=== PATIENT | male | born 1935 | race Caucasian/White ===

== ENCOUNTER 2017-12-04 09:01 | Inpatient (IN) | payer MEDICARE ==
[~2017-12-04] VITALS: Ht 182.9 cm; Wt 86.0 kg
[2017-12-04] MEDS ORDERED: ondansetron/PF 4mg/2ml inj IV ONE (09:20)
[2017-12-04] MEDS ORDERED: normal saline 1000ML IV soln IVB ONE (09:20)
[2017-12-04 09:35] LABS: BASOPHILS % (AUTO) 0.3 % (0-1); EOSINOPHILS % (AUTO) 0 % (0-6); HEMATOCRIT 41.2 % (42.0-52.0); HEMOGLOBIN 14.2 g/dl (14.0-17.9); LYMPHOCYTES # (AUTO) 1.6 X10'3 (1.1-4.8); LYMPHOCYTES % (AUTO) 10.9 % (21-51); MEAN CORPUSCULAR HEMOGLOBIN 29.6 PG (27.0-31.0); MEAN CORPUSCULAR HGB CONC 34.5 % (33.0-36.5); MEAN CORPUSCULAR VOLUME 85.6 FL (78-98); MEAN PLATELET VOLUME 7.4 FL (7.4-10.4); MONOCYTES # (AUTO) 0.7 X10'3 (0-0.9); NEUTROPHILS % (AUTO) 83.8 % (42-75); PLATELET COUNT 281 X10'3 (140-440); RED BLOOD COUNT 4.82 X10'6 (4.70-6.10); RED CELL DISTRIBUTION WIDTH 13.5 % (11.5-14.5); WHITE BLOOD COUNT 14.3 X10'3 (4.5-11.0)
[2017-12-04 09:44] LABS: PARTIAL THROMBOPLASTIN TIME 43 SECONDS (22-32)
[2017-12-04 09:56] LABS: ALANINE AMINOTRANSFERASE 24 U/L (12-78); ALBUMIN 3.7 G/DL (3.4-5.0); ALKALINE PHOSPHATASE 59 IU/L (46-116); ANION GAP 10 (8-16); ASPARTATE AMINO TRANSFERASE 22 U/L (10-37); BILIRUBIN,TOTAL 0.5 MG/DL (0.1-1.0); BLOOD UREA NITROGEN 13 MG/DL (7-18); BUN/CREATININE RATIO 14.3 (5.4-32.0); CALCIUM 9.2 MG/DL (8.5-10.1); CHLORIDE 101 MMOL/L (99-107); CREATININE 0.91 MG/DL (0.60-1.10); GLUCOSE 153 MG/DL (70-104); LIPASE 105 U/L (73-393); POTASSIUM 3.8 MMOL/L (3.5-5.1); SODIUM 137 MMOL/L (135-145); TOTAL CARBON DIOXIDE 26.5 MMOL/L (24-32); TOTAL PROTEIN 7.4 G/DL (6.4-8.2); eGFR 80 ML/MIN
[2017-12-04 11:09] LABS: CLARITY,URINE CLEAR (Clear); COLOR,URINE YELLOW (Yellow); GLUCOSE, URINE NEGATIVE (Neg); KETONES,URINE NEGATIVE (Neg); LEUKOCYTE ESTERASE ,URINE NEGATIVE (Neg); NITRITES, URINE NEGATIVE (Neg); OCCULT BLOOD,URINE TRACE-INTACT (Neg); PROTEIN,URINE NEGATIVE (Neg); UROBILINOGEN,URINE 0.2 E.U/dL (0.2-1.0)
[2017-12-04 11:15] LABS: UA COLLECTION TYPE CLN CATCH MIDSTREAM
[2017-12-04 11:16] LABS: BACTERIA,URINE FEW /HPF (Neg); MUCUS STRANDS NONE SEEN /LPF (Neg); RBC,URINE 0-2 /HPF (0-2); SQUAMOUS EPITHELIAL CELL,UR FEW /LPF (FEW); WBC,URINE 0-4 /HPF (0-4)
[2017-12-04] MEDS ORDERED: FLO0.4C PO (12:46)
[2017-12-04] MEDS ORDERED: LOVA20TA2 PO (12:48)
[2017-12-04] MEDS ORDERED: magnesium Cl slow-release 64mg tablet PO PRN (14:20)
[2017-12-04] MEDS ORDERED: magnesium hydroxide 30ml (MOM) UD suspension PO PRN (14:20)
[2017-12-04] MEDS ORDERED: bisacodyl 10mg suppository rectal RC PRN (14:20)
[2017-12-04] MEDS ORDERED: mag hydrox/Alum hydrox/simeth 30ml oral suspension PO PRN (14:20)
[2017-12-04] MEDS ORDERED: magnesium 1gm/100ml D5W IVPB 100 ML IV PRN (14:20)
[2017-12-04] MEDS ORDERED: magnesium 4gm in 100ml NS 100 ML IV PRN (14:20)
[2017-12-04] MEDS ORDERED: potassium Cl 20 mEq SR tablet PO PRN ×2 (14:20)
[2017-12-04] MEDS ORDERED: potassium Cl 40MEQ/NS 500ml 500 ML IV PRN ×2 (14:20)
[2017-12-04] MEDS ORDERED: HYDROcodone/acetaminophen 10/325mg tab PO PRN (14:20)
[2017-12-04] MEDS ORDERED: HYDROcodone/acetaminophen 5mg/325mg tablet PO PRN (14:20)
[2017-12-04] MEDS ORDERED: morphine 2 MG/ML inj. syringe IV PRN ×2 (14:20)
[2017-12-04] MEDS ORDERED: SINCALIDE IV ONE (14:25)
[2017-12-04] MEDS ORDERED: NORMAL SALINE IV ONE (14:25)
[2017-12-04] MEDS: levoFLOXACIN-Levaquin 500mg/D5 100 ML IV SCH (14:54)
[2017-12-04] MEDS: pantoprazole 40 MG vial IV SCH (14:54)
[2017-12-04 15:45] VITALS: BP 140/69
[2017-12-04] MEDS: potassium cl 20mEq in 1/2 NS 1,000 ML IV SCH (16:23)
[2017-12-04 19:00] VITALS: BP 134/68
[2017-12-04] MEDS: docusate sod 100mg capsule PO SCH (20:30)
[2017-12-05] VITALS (17 sets, daily range): BP systolic 98–193; BP diastolic 52–87
[2017-12-05] MEDS: potassium cl 20mEq in 1/2 NS 1,000 ML IV SCH ×3 (02:41→23:19)
[2017-12-05 06:34] LABS: BASOPHILS % (AUTO) 0.3 % (0-1); EOSINOPHILS % (AUTO) 0.1 % (0-6); HEMATOCRIT 38.4 % (42.0-52.0); HEMOGLOBIN 13.2 g/dl (14.0-17.9); LYMPHOCYTES # (AUTO) 1.9 X10'3 (1.1-4.8); LYMPHOCYTES % (AUTO) 19.6 % (21-51); MEAN CORPUSCULAR HGB CONC 34.5 % (33.0-36.5); MEAN CORPUSCULAR VOLUME 86.9 FL (78-98); MEAN PLATELET VOLUME 7.8 FL (7.4-10.4); MONOCYTES # (AUTO) 1.2 X10'3 (0-0.9); MONOCYTES % (AUTO) 12.4 % (2-12); NEUTROPHILS # (AUTO) 6.8 X10'3 (1.8-7.7); NEUTROPHILS % (AUTO) 67.6 % (42-75); PLATELET COUNT 232 X10'3 (140-440); RED BLOOD COUNT 4.42 X10'6 (4.70-6.10); WHITE BLOOD COUNT 9.9 X10'3 (4.5-11.0)
[2017-12-05 06:43] LABS: ALANINE AMINOTRANSFERASE 16 U/L (12-78); ALBUMIN 3.1 G/DL (3.4-5.0); ALBUMIN/GLOBULIN RATIO 0.9 (1.1-1.5); ALKALINE PHOSPHATASE 50 IU/L (46-116); ANION GAP 8 (8-16); ASPARTATE AMINO TRANSFERASE 17 U/L (10-37); BILIRUBIN,TOTAL 0.7 MG/DL (0.1-1.0); BLOOD UREA NITROGEN 10 MG/DL (7-18); BUN/CREATININE RATIO 11.1 (5.4-32.0); CALCIUM 8.9 MG/DL (8.5-10.1); CHLORIDE 105 MMOL/L (99-107); GLUCOSE 120 MG/DL (70-104); MAGNESIUM 2.1 MG/DL (1.5-2.4); POTASSIUM 4.1 MMOL/L (3.5-5.1); SODIUM 140 MMOL/L (135-145); TOTAL CARBON DIOXIDE 27.4 MMOL/L (24-32); TOTAL PROTEIN 6.6 G/DL (6.4-8.2); eGFR 81 ML/MIN
[2017-12-05] MEDS: levoFLOXACIN-Levaquin 500mg/D5 100 ML IV SCH (07:27)
[2017-12-05] MEDS: tamsulosin 0.4mg capsule PO SCH (07:27)
[2017-12-05] MEDS: pantoprazole 40 MG vial IV SCH (07:27)
[2017-12-05] MEDS: docusate sod 100mg capsule PO SCH ×2 (07:27→20:52)
[2017-12-05] MEDS: atorvastatin 10mg tablet PO SCH (07:28)
[2017-12-05] MEDS: enoxaparin 40mg/0.4ml syringe SUBCUT SCH (08:00)
[2017-12-05] MEDS: K and/or MAG REPLACEMENT MC SCH (08:00)
[2017-12-05] MEDS ORDERED: SINCALIDE IV ONE (09:00)
[2017-12-05] MEDS ORDERED: NORMAL SALINE IV ONE (09:00)
[2017-12-05] MEDS ORDERED: morphine 4 MG/ML inj SYRINge IV PRN (16:40)
[2017-12-05] MEDS ORDERED: hydrALAZINE 20mg/ml inj. IV PRN (16:40)
[2017-12-05] MEDS ORDERED: enalaprilat dihydrate 2.5mg/2ml vial IV PRN (16:40)
[2017-12-05] MEDS ORDERED: fentaNYL/PF 50MCG/1 ML 2ML syringe IV PRN ×2 (16:40)
[2017-12-05] MEDS ORDERED: ringers solution, lacted 1,000 ML IV SCH (16:40)
[2017-12-05] MEDS ORDERED: ondansetron/PF 4mg/2ml inj IV PRN (16:40)
[2017-12-05] MEDS ORDERED: ceFAZolin 1000mg inj ONE (16:46)
[2017-12-05] MEDS ORDERED: BUPIVAcaine/PF 2.5mg/ml (0.25%) 10ml vial ONE (16:46)
[2017-12-05] MEDS ORDERED: ceFOXitin 2 GM ADDvantage bag 100 ML IV ONE (17:05)
[2017-12-05] MEDS ORDERED: fentaNYL/PF 50MCG/1 ML 2ML syringe ONE (17:15)
[2017-12-05] MEDS ORDERED: midazolam 2 mg/2 ml injection ONE (17:15)
[2017-12-05] MEDS ORDERED: etomidate 2mg/ml inj. ONE (17:16)
[2017-12-05] MEDS ORDERED: rocuronium 10mg/ml inj IV ONE (17:16)
[2017-12-05] MEDS ORDERED: ondansetron/PF 4mg/2ml inj ONE (17:34)
[2017-12-05] MEDS ORDERED: glycopyrrolate 0.2mg/ml inj ONE (18:07)
[2017-12-05] MEDS ORDERED: HYDROcodone/acetaminophen 10/325mg tab PO PRN (18:15)
[2017-12-05] MEDS: morphine 4 MG/ML inj SYRINge IV PRN ×2 (18:37→18:55)
[2017-12-05] MEDS: ceFOXitin 2 GM ADDvantage bag 100 ML IV SCH (20:45)
[2017-12-06] MEDS: ceFOXitin 2 GM ADDvantage bag 100 ML IV SCH ×2 (02:29→07:23)
[2017-12-06 04:55] VITALS: BP 129/65
[2017-12-06 05:44] LABS: BASOPHILS % (AUTO) 0.1 % (0-1); EOSINOPHILS % (AUTO) 0 % (0-6); HEMOGLOBIN 12.6 g/dl (14.0-17.9); LYMPHOCYTES # (AUTO) 0.9 X10'3 (1.1-4.8); LYMPHOCYTES % (AUTO) 8.8 % (21-51); MEAN CORPUSCULAR HEMOGLOBIN 30.9 PG (27.0-31.0); MEAN CORPUSCULAR VOLUME 88.2 FL (78-98); MEAN PLATELET VOLUME 7.5 FL (7.4-10.4); MONOCYTES # (AUTO) 0.8 X10'3 (0-0.9); MONOCYTES % (AUTO) 7.4 % (2-12); NEUTROPHILS % (AUTO) 83.7 % (42-75); PLATELET COUNT 234 X10'3 (140-440); RED BLOOD COUNT 4.08 X10'6 (4.70-6.10); RED CELL DISTRIBUTION WIDTH 13.5 % (11.5-14.5); WHITE BLOOD COUNT 10.7 X10'3 (4.5-11.0)
[2017-12-06 06:17] LABS: ALANINE AMINOTRANSFERASE 43 U/L (12-78); ALBUMIN 2.7 G/DL (3.4-5.0); ALBUMIN/GLOBULIN RATIO 0.8 (1.1-1.5); ALKALINE PHOSPHATASE 49 IU/L (46-116); ANION GAP 8 (8-16); ASPARTATE AMINO TRANSFERASE 48 U/L (10-37); BILIRUBIN,TOTAL 0.6 MG/DL (0.1-1.0); BLOOD UREA NITROGEN 16 MG/DL (7-18); CALCIUM 8.1 MG/DL (8.5-10.1); CHLORIDE 102 MMOL/L (99-107); CREATININE 0.94 MG/DL (0.60-1.10); GLUCOSE 140 MG/DL (70-104); MAGNESIUM 1.8 MG/DL (1.5-2.4); POTASSIUM 4.4 MMOL/L (3.5-5.1); SODIUM 136 MMOL/L (135-145); TOTAL CARBON DIOXIDE 25.7 MMOL/L (24-32); TOTAL PROTEIN 6.3 G/DL (6.4-8.2); eGFR 77 ML/MIN
[2017-12-06] MEDS: K and/or MAG REPLACEMENT MC SCH (07:06)
[2017-12-06 07:13] VITALS: BP 122/66
[2017-12-06] MEDS: pantoprazole 40 MG vial IV SCH (07:23)
[2017-12-06] MEDS: levoFLOXACIN-Levaquin 500mg/D5 100 ML IV SCH (08:26)
[2017-12-06] MEDS: atorvastatin 10mg tablet PO SCH (08:31)
[2017-12-06] MEDS: docusate sod 100mg capsule PO SCH ×2 (08:32→19:10)
[2017-12-06] MEDS: enoxaparin 40mg/0.4ml syringe SUBCUT SCH (08:32)
[2017-12-06] MEDS: tamsulosin 0.4mg capsule PO SCH (08:32)
[2017-12-06] MEDS: potassium cl 20mEq in 1/2 NS 1,000 ML IV SCH (14:26)
[2017-12-06 20:00] VITALS: BP 137/64
[2017-12-07] VITALS: BP 123/66
[2017-12-07] MEDS: potassium cl 20mEq in 1/2 NS 1,000 ML IV SCH (05:37)
[2017-12-07 06:15] LABS: ALANINE AMINOTRANSFERASE 58 U/L (12-78); ALBUMIN 2.7 G/DL (3.4-5.0); ALBUMIN/GLOBULIN RATIO 0.8 (1.1-1.5); ALKALINE PHOSPHATASE 55 IU/L (46-116); ANION GAP 8 (8-16); ASPARTATE AMINO TRANSFERASE 49 U/L (10-37); BILIRUBIN,TOTAL 0.6 MG/DL (0.1-1.0); BLOOD UREA NITROGEN 12 MG/DL (7-18); BUN/CREATININE RATIO 14.5 (5.4-32.0); CALCIUM 8.1 MG/DL (8.5-10.1); CHLORIDE 103 MMOL/L (99-107); CREATININE 0.83 MG/DL (0.60-1.10); GLUCOSE 110 MG/DL (70-104); POTASSIUM 3.9 MMOL/L (3.5-5.1); SODIUM 138 MMOL/L (135-145); TOTAL CARBON DIOXIDE 26.8 MMOL/L (24-32); TOTAL PROTEIN 6.3 G/DL (6.4-8.2); eGFR 88 ML/MIN
[2017-12-07 07:40] VITALS: BP 146/76
[2017-12-07] MEDS: enoxaparin 40mg/0.4ml syringe SUBCUT SCH (07:53)
[2017-12-07] MEDS: docusate sod 100mg capsule PO SCH ×2 (07:53→20:41)
[2017-12-07] MEDS: pantoprazole 40 MG vial IV SCH (07:53)
[2017-12-07] MEDS: tamsulosin 0.4mg capsule PO SCH (07:53)
[2017-12-07] MEDS: atorvastatin 10mg tablet PO SCH (07:53)
[2017-12-07] MEDS: levoFLOXACIN-Levaquin 500mg/D5 100 ML IV SCH (07:54)
[2017-12-07] MEDS: K and/or MAG REPLACEMENT MC SCH (08:00)
[2017-12-07] MEDS: acetaminophen 325mg tablet PO PRN ×3 (10:24→23:28)
[2017-12-07 12:21] VITALS: BP 141/75
[2017-12-07 20:00] VITALS: BP 127/73
[2017-12-08] VITALS: BP 134/73
[2017-12-08] MEDS: potassium cl 20mEq in 1/2 NS 1,000 ML IV SCH ×2 (02:23→21:35)
[2017-12-08 06:49] LABS: ALANINE AMINOTRANSFERASE 44 U/L (12-78); ALBUMIN 2.6 G/DL (3.4-5.0); ALBUMIN/GLOBULIN RATIO 0.7 (1.1-1.5); ALKALINE PHOSPHATASE 56 IU/L (46-116); ANION GAP 7 (8-16); ASPARTATE AMINO TRANSFERASE 26 U/L (10-37); BILIRUBIN,TOTAL 0.7 MG/DL (0.1-1.0); BLOOD UREA NITROGEN 12 MG/DL (7-18); BUN/CREATININE RATIO 14.5 (5.4-32.0); CALCIUM 8.1 MG/DL (8.5-10.1); CHLORIDE 101 MMOL/L (99-107); CREATININE 0.83 MG/DL (0.60-1.10); GLUCOSE 124 MG/DL (70-104); MAGNESIUM 1.9 MG/DL (1.5-2.4); POTASSIUM 3.5 MMOL/L (3.5-5.1); SODIUM 135 MMOL/L (135-145); TOTAL CARBON DIOXIDE 27.2 MMOL/L (24-32); TOTAL PROTEIN 6.5 G/DL (6.4-8.2); eGFR 88 ML/MIN
[2017-12-08 07:00] VITALS: BP 138/76
[2017-12-08] MEDS: K and/or MAG REPLACEMENT MC SCH (08:00)
[2017-12-08] MEDS: pantoprazole 40 MG vial IV SCH (09:20)
[2017-12-08] MEDS: docusate sod 100mg capsule PO SCH ×2 (09:20→21:35)
[2017-12-08] MEDS: levoFLOXACIN-Levaquin 500mg/D5 100 ML IV SCH (09:20)
[2017-12-08] MEDS: atorvastatin 10mg tablet PO SCH (09:20)
[2017-12-08] MEDS: tamsulosin 0.4mg capsule PO SCH (09:20)
[2017-12-08] MEDS: enoxaparin 40mg/0.4ml syringe SUBCUT SCH (09:21)
[2017-12-08] MEDS: acetaminophen 325mg tablet PO PRN ×3 (09:23→22:44)
[2017-12-08 11:00] VITALS: BP 101/82
[2017-12-08 20:00] VITALS: BP 132/75
[2017-12-09] VITALS: BP 117/68
[2017-12-09 05:57] LABS: BASOPHILS % (AUTO) 0.1 % (0-1); EOSINOPHILS % (AUTO) 0.1 % (0-6); HEMOGLOBIN 12.8 g/dl (14.0-17.9); LYMPHOCYTES # (AUTO) 1.4 X10'3 (1.1-4.8); LYMPHOCYTES % (AUTO) 9.2 % (21-51); MEAN CORPUSCULAR HEMOGLOBIN 30.1 PG (27.0-31.0); MEAN CORPUSCULAR HGB CONC 34.6 % (33.0-36.5); MEAN CORPUSCULAR VOLUME 87.1 FL (78-98); MONOCYTES # (AUTO) 1.7 X10'3 (0-0.9); MONOCYTES % (AUTO) 11.2 % (2-12); NEUTROPHILS # (AUTO) 11.8 X10'3 (1.8-7.7); NEUTROPHILS % (AUTO) 79.4 % (42-75); RED BLOOD COUNT 4.25 X10'6 (4.70-6.10); RED CELL DISTRIBUTION WIDTH 13.6 % (11.5-14.5); WHITE BLOOD COUNT 14.9 X10'3 (4.5-11.0)
[2017-12-09 05:58] LABS: ALANINE AMINOTRANSFERASE 33 U/L (12-78); ALBUMIN 2.4 G/DL (3.4-5.0); ALBUMIN/GLOBULIN RATIO 0.6 (1.1-1.5); ALKALINE PHOSPHATASE 62 IU/L (46-116); ANION GAP 9 (8-16); ASPARTATE AMINO TRANSFERASE 18 U/L (10-37); BILIRUBIN,TOTAL 0.6 MG/DL (0.1-1.0); BLOOD UREA NITROGEN 9 MG/DL (7-18); BUN/CREATININE RATIO 11.8 (5.4-32.0); CALCIUM 8.1 MG/DL (8.5-10.1); CHLORIDE 101 MMOL/L (99-107); CREATININE 0.76 MG/DL (0.60-1.10); GLUCOSE 123 MG/DL (70-104); MAGNESIUM 1.9 MG/DL (1.5-2.4); POTASSIUM 3.4 MMOL/L (3.5-5.1); SODIUM 136 MMOL/L (135-145); TOTAL CARBON DIOXIDE 26.2 MMOL/L (24-32); TOTAL PROTEIN 6.3 G/DL (6.4-8.2); eGFR > 90 ML/MIN
[2017-12-09 06:00] LABS: MEAN PLATELET VOLUME 7.8 FL (7.4-10.4); PLATELET COUNT 235 X10'3 (140-440)
[2017-12-09 07:00] VITALS: BP_SYST 146; BP_SYST 192; BP_DIAS 102; BP_DIAS 80
[2017-12-09] MEDS: K and/or MAG REPLACEMENT MC SCH (08:00)
[2017-12-09] MEDS: atorvastatin 10mg tablet PO SCH (08:09)
[2017-12-09] MEDS: tamsulosin 0.4mg capsule PO SCH (08:09)
[2017-12-09] MEDS: docusate sod 100mg capsule PO SCH ×2 (08:09→20:20)
[2017-12-09] MEDS: pantoprazole 40 MG vial IV SCH (08:09)
[2017-12-09] MEDS: enoxaparin 40mg/0.4ml syringe SUBCUT SCH (08:10)
[2017-12-09] MEDS: levoFLOXACIN-Levaquin 500mg/D5 100 ML IV SCH (08:10)
[2017-12-09] MEDS: acetaminophen 325mg tablet PO PRN ×2 (08:10→17:26)
[2017-12-09 10:17] LABS: CLARITY,URINE CLEAR (Clear); COLOR,URINE YELLOW (Yellow); GLUCOSE, URINE NEGATIVE (Neg); KETONES,URINE 15 mg/dl (Neg); LEUKOCYTE ESTERASE ,URINE NEGATIVE (Neg); NITRITES, URINE NEGATIVE (Neg); OCCULT BLOOD,URINE TRACE-INTACT (Neg); PROTEIN,URINE NEGATIVE (Neg); UROBILINOGEN,URINE 0.2 E.U/dL (0.2-1.0)
[2017-12-09 10:25] LABS: UA COLLECTION TYPE URINAL
[2017-12-09 10:26] LABS: HYALINE CASTS 0-3 /LPF (NEGATIVE); MUCUS STRANDS FEW /LPF (Neg); SQUAMOUS EPITHELIAL CELL,UR MODERATE /LPF (FEW)
[2017-12-09 10:29] LABS: BACTERIA,URINE 1+ /HPF (Neg); RBC,URINE 0-2 /HPF (0-2); WBC,URINE 0-4 /HPF (0-4)
[2017-12-09 11:00] VITALS: BP 121/68
[2017-12-09] MEDS: potassium cl 20mEq in 1/2 NS 1,000 ML IV SCH (14:44)
[2017-12-09 18:00] VITALS: BP 117/66
[2017-12-10] VITALS: BP 140/76
[2017-12-10] MEDS: acetaminophen 325mg tablet PO PRN ×2 (01:26→08:20)
[2017-12-10] MEDS: potassium cl 20mEq in 1/2 NS 1,000 ML IV SCH (04:46)
[2017-12-10 06:03] LABS: BASOPHILS % (AUTO) 0 % (0-1); EOSINOPHILS % (AUTO) 0.2 % (0-6); HEMATOCRIT 40.2 % (42.0-52.0); HEMOGLOBIN 13.6 g/dl (14.0-17.9); LYMPHOCYTES # (AUTO) 2.1 X10'3 (1.1-4.8); LYMPHOCYTES % (AUTO) 12.7 % (21-51); MEAN CORPUSCULAR HEMOGLOBIN 29.7 PG (27.0-31.0); MEAN CORPUSCULAR HGB CONC 33.9 % (33.0-36.5); MEAN CORPUSCULAR VOLUME 87.5 FL (78-98); MEAN PLATELET VOLUME 7.6 FL (7.4-10.4); MONOCYTES # (AUTO) 1.5 X10'3 (0-0.9); MONOCYTES % (AUTO) 9.2 % (2-12); NEUTROPHILS # (AUTO) 12.7 X10'3 (1.8-7.7); NEUTROPHILS % (AUTO) 77.9 % (42-75); PLATELET COUNT 293 X10'3 (140-440); RED BLOOD COUNT 4.59 X10'6 (4.70-6.10); RED CELL DISTRIBUTION WIDTH 13.7 % (11.5-14.5); WHITE BLOOD COUNT 16.3 X10'3 (4.5-11.0)
[2017-12-10 06:05] LABS: ALANINE AMINOTRANSFERASE 31 U/L (12-78); ALBUMIN 2.4 G/DL (3.4-5.0); ALBUMIN/GLOBULIN RATIO 0.5 (1.1-1.5); ALKALINE PHOSPHATASE 71 IU/L (46-116); ANION GAP 9 (8-16); ASPARTATE AMINO TRANSFERASE 17 U/L (10-37); BILIRUBIN,TOTAL 0.5 MG/DL (0.1-1.0); BLOOD UREA NITROGEN 12 MG/DL (7-18); BUN/CREATININE RATIO 12.9 (5.4-32.0); CALCIUM 8.4 MG/DL (8.5-10.1); CHLORIDE 102 MMOL/L (99-107); CREATININE 0.93 MG/DL (0.60-1.10); GLUCOSE 117 MG/DL (70-104); MAGNESIUM 1.9 MG/DL (1.5-2.4); POTASSIUM 3.4 MMOL/L (3.5-5.1); SODIUM 138 MMOL/L (135-145); TOTAL CARBON DIOXIDE 27.4 MMOL/L (24-32); TOTAL PROTEIN 6.8 G/DL (6.4-8.2); eGFR 78 ML/MIN
[2017-12-10 07:00] VITALS: BP 147/76
[2017-12-10] MEDS: K and/or MAG REPLACEMENT MC SCH (08:00)
[2017-12-10] MEDS: levoFLOXACIN-Levaquin 500mg/D5 100 ML IV SCH (08:15)
[2017-12-10] MEDS: atorvastatin 10mg tablet PO SCH (08:17)
[2017-12-10] MEDS: tamsulosin 0.4mg capsule PO SCH (08:17)
[2017-12-10] MEDS: docusate sod 100mg capsule PO SCH (08:17)
[2017-12-10] MEDS: enoxaparin 40mg/0.4ml syringe SUBCUT SCH (08:19)
[2017-12-10] MEDS ORDERED: pantoprazole 40mg Tablet.DR PO SCH (08:30)
[2017-12-10] MEDS ORDERED: magnesium Cl slow-release 64mg tablet PO PRN (09:10)
[2017-12-10] MEDS ORDERED: potassium Cl 20 mEq SR tablet PO PRN ×2 (09:10)
[2017-12-10] MEDS ORDERED: magnesium 4gm in 100ml NS 100 ML IV PRN (09:10)
[2017-12-10] MEDS ORDERED: potassium Cl 40MEQ/NS 500ml 500 ML IV PRN ×2 (09:10)
[2017-12-10] MEDS ORDERED: magnesium 1gm/100ml D5W IVPB 100 ML IV PRN (09:10)
== END 2017-12-10 13:56 | disposition home or self-care (01) | DRG 419 ==
LOC: ER 09:02 → ED HOLD 14:18 → SUR 3N 15:39
PROVIDERS: ADMIT Internal Medicine; ATTEND Family Medicine
PROC: BW211ZZ Computerized Tomography (CT Scan) of Abdomen and Pelvis using Low Osmolar Contrast (ICD-10-PCS; 2017-12-04)
PROC: CF141ZZ Planar Nuclear Medicine Imaging of Gallbladder using Technetium 99m (Tc-99m) (ICD-10-PCS; 2017-12-05)
PROC: 0FT44ZZ Resection of Gallbladder, Percutaneous Endoscopic Approach (ICD-10-PCS; principal; 2017-12-05 17:24)
DX: K80.00 Calculus of gallbladder with acute cholecystitis without obstruction (principal); K21.9 Gastro-esophageal reflux disease without esophagitis; E78.5 Hyperlipidemia, unspecified; K40.90 Unilateral inguinal hernia, without obstruction or gangrene, not specified as recurrent; I35.0 Nonrheumatic aortic (valve) stenosis; Z88.2 Allergy status to sulfonamides; Z79.899 Other long term (current) drug therapy; Z85.46 Personal history of malignant neoplasm of prostate; Z92.3 Personal history of irradiation
CPT/HCPCS: 36415; 71045; 74176; 76700; 78226; 80053; 81001; 83605; 83690; 83735; 84132; 84145; 84484; 85025; 85610; 85730; 87040; 87070; 88304; 93005; 93306; 96361; 96374; 99285; A6251; A7000; A9537; C9113; J0690; J0694; J1650; J1956; J2250; J2270; J2405; J3010; J3480; J3490; J7120